=== PATIENT | female | born 1960 | race Two or more races ===

== ENCOUNTER 2020-01-08 12:47 | Outpatient (CLI) | payer OTHER | END 2020-01-08 12:56 | disposition home or self-care (01) | LOC: RAD 12:47 | DX: D12.0 Benign neoplasm of cecum (principal); C18.0 Malignant neoplasm of cecum; Z86.010 Personal history of colon polyps; K92.1 Melena ==

== ENCOUNTER 2020-01-09 07:05 | Outpatient (CLI) | payer OTHER ==
[2020-01-10] MEDS ORDERED: WELLBUTRIN SR150 MG PO (09:48)
[2020-01-10] MEDS ORDERED: SEROQUEL50 MG PO (09:49)
[2020-01-10] MEDS ORDERED: RESTORIL30 M1 PO (09:49)
== END 2020-01-09 07:26 | disposition home or self-care (01) ==
LOC: LAB 07:05
DX: D12.0 Benign neoplasm of cecum (principal); C18.0 Malignant neoplasm of cecum; Z86.010 Personal history of colon polyps; K92.1 Melena

== ENCOUNTER 2020-01-10 08:15 | Inpatient (IN) | payer OTHER ==
[~2020-01-10] VITALS: Ht 157.5 cm; Wt 65.8 kg
[2020-01-10] MEDS ORDERED: WELLBUTRIN SR150 MG PO (09:48)
[2020-01-10] MEDS ORDERED: RESTORIL30 M1 PO (09:49)
[2020-01-10] MEDS ORDERED: SEROQUEL50 MG PO (09:49)
== END 2020-01-19 13:00 | disposition home or self-care (01) | DRG 331 ==
LOC: SURG 01-16 06:10 → O/R 01-16 06:10 → SURH 01-16 07:00 → OB/GYN 01-16 08:15 → SURG 01-16 13:20
PROVIDERS: ADMIT Colon & Rectal Surgery
PROC: 07BD4ZZ Excision of Aortic Lymphatic, Percutaneous Endoscopic Approach (ICD-10-PCS; 2020-01-16)
PROC: 0DTF4ZZ Resection of Right Large Intestine, Percutaneous Endoscopic Approach (ICD-10-PCS; principal; 2020-01-16 07:00)
DX: D12.0 Benign neoplasm of cecum (principal); F41.9 Anxiety disorder, unspecified; I10 Essential (primary) hypertension; F17.200 Nicotine dependence, unspecified, uncomplicated

== ENCOUNTER 2021-02-28 07:43 | Day surgery (SDC) | payer OTHER ==
[~2021-02-28 07:43] MED LIST: RESTORIL30 M1 PO; SEROQUEL50 MG PO; WELLBUTRIN SR150 MG PO
== END 2021-02-28 14:35 | disposition home or self-care (01) ==
LOC: AMB-ENDOS 07:43
PROVIDERS: ATTEND Colon & Rectal Surgery
DX: D12.0 Benign neoplasm of cecum (principal); K64.0 First degree hemorrhoids; Z20.822 Contact with and (suspected) exposure to COVID-19